=== PATIENT | male | born 1955 | race Caucasian/White ===

== ENCOUNTER 2017-07-30 09:52 | Emergency (ER) | payer OTHER ==
[~2017-07-30] VITALS: Ht 182.9 cm; Wt 59.0 kg
[~2017-07-30 09:52] MED LIST: CIPRO500 MG PO; NORCO 5-325 TA1 EACH PO; ONDANSETRON HCL4 M2 PO
[2017-07-30 10:21] LABS: ABSOLUTE MONOCYTES 0.6 thou/uL (0.0-1.2); ABSOLUTE NEUTROPHILS 1.9 thou/uL (1.6-8.1); BASOPHILS 0.9 %; EOSINOPHILS 0.3 %; HEMATOCRIT 46.4 % (42.0-52.0); HEMOGLOBIN 16.1 gm/dL (14.0-18.0); LYMPHOCYTES 28.8 %; MCH 33.1 pg (26.0-34.0); MCHC 34.6 g/dL (28.0-37.0); MCV 95.8 fL (80.0-100.0); MONOCYTES 16.5 %; NUCLEATED RBCS 0 /100WBC; PLATELET COUNT* 126 thou/uL (150-400); POLYS 53.5 %; RBC 4.85 mil/uL (4.50-6.00); RDW-CV 13.3 % (10.5-14.5); WBC 3.5 thou/uL (4.0-11.0)
[2017-07-30 10:28] LABS: ALBUMIN 3.8 g/dL (3.4-5.0); ANION GAP 6 mmol/L (7-16); BUN 11 mg/dL (7-18); CALCIUM 8.8 mg/dL (8.5-10.1); CHLORIDE 98 mmol/L (98-107); CO2 29 mmol/L (21-32); CREATININE 0.8 mg/dL (0.6-1.3); GLUCOSE 93 mg/dL (70-99); SODIUM 133 mmol/L (136-145)
[2017-07-30 10:32] LABS: URINE BILIRUBIN NEGATIVE (Negative); URINE BLOOD NEGATIVE (Negative); URINE CLARITY CLEAR; URINE COLOR DARK YELLOW; URINE GLUCOSE-RANDOM NEGATIVE (Negative); URINE KETONES TRACE (Negative); URINE LEUKOCYTES-REFLEX TRACE (Negative); URINE NITRITE-REFLEX POSITIVE (Negative); URINE PROTEIN TRACE (Negative); URINE UROBILINOGEN 0.2 E.U./dl (0.2-1.0)
[2017-07-30 10:37] LABS: BACTERIA-REFLEX >30 Many /HPF (None Seen); CASTS None Seen /LPF (None Seen); CRYSTALS None Seen /LPF (None Seen); MUCUS None Seen strn/LPF (None Seen); SQUAMOUS 4-10 Moderate /LPF (0-3); URINE RBC 3-10 Few /HPF (0-2)
[2017-07-30 10:37] LABS: APTT 32.5 Seconds (25.0-31.3); PROTIME 10.1 Seconds (9.20-11.50)
[2017-07-30 10:50] LABS: ALKALINE PHOSPHATASE 76 U/L (46-116); NT-PRO BRAIN NAT PEPTIDE 91 pg/mL (<300); SGOT 27 U/L (15-37); SGPT 24 U/L (30-65); TOTAL BILIRUBIN 0.5 mg/dL (<0.1-1.0); TOTAL PROTEIN 7.6 g/dL (6.4-8.2); TROPONIN-I LEVEL <0.06 ng/mL (<0.06)
[2017-07-30] MEDS ORDERED: CIPROFLOXACIN500 M1 PO (11:18)
[2017-07-30 11:30] VITALS: BP 127/70
--- NOTE | 2017-07-30 16:45 | EKG ---
[place] [address] ELECTROCARDIOGRAM REPORT Name: BOB REYSE Room: [facility]#: [id number] Admission: 07/30/17 Attend Phys: Discharge: 07/30/17 Date of : 55 Report #: [id number] THIS REPORT FOR: //name// [facility] ED Test Date: 2017-07-30 Test Time: 10:02:37 Pat Name: BOB REYES Department: Room: Gender: M [employer]: Jessica PERKINS : 1955 Requested By: Yaya Mcginnis Order Number: [id number] MD: Bandar Yi Measurements Intervals [place] Rate: 58 P: -60 [place]: 130 QRS: 91 QRSD: 113 T: 65 QT: 405 QTc: 398 Interpretive Statements Sinus or ectopic atrial rhythm with short pr interval Borderline intraventricular conduction delay Compared to ECG 11/03/2016 15:29:54 Ectopic atrial rhythm now present Sinus arrhythmia no longer present Electronically Signed On 07-30-2017 16:45:16 [employer] by Bandar Yi [email or web address] <ELECTRONICALLY SIGNED> By: Bandar Yi MD, [facility] 07/30/17 [id number] Bandar Yi MD, FAC /EPI
== END 2017-07-30 11:30 | disposition home or self-care (01) ==
LOC: M.ERS 09:52
PROVIDERS: Family Medicine
DX: N39.0 Urinary tract infection, site not specified (principal); F17.210 Nicotine dependence, cigarettes, uncomplicated; Z88.0 Allergy status to penicillin